=== PATIENT | male | born 1965 | race Caucasian/White ===

== ENCOUNTER → 2020-05-24 11:27 | Outpatient (CLI) | payer OTHER, SELFPAY ==
[2020-05-24 20:43] LABS: SARS-CoV-2 RNA PCR Negative
== END ==
PROVIDERS: PCP Family Medicine; Visit Provider Family Medicine
DX: Z20.822 Contact with and (suspected) exposure to COVID-19 (principal); R06.02 Shortness of breath; R53.83 Other fatigue; R09.81 Nasal congestion
CPT/HCPCS: C9803; U0003; U0005

== ENCOUNTER 2020-07-18 14:30 | Outpatient (CLI) | payer OTHER, SELFPAY | END 2020-07-18 14:31 | disposition home or self-care (01) | LOC: ANHCOVIDVC 14:30 | PROVIDERS: PCP Family Medicine | DX: Z23 Encounter for immunization (principal) | CPT/HCPCS: 0001A; 91300 ==

== ENCOUNTER → 2020-08-10 06:48 | Outpatient (CLI) | payer OTHER, SELFPAY ==
[2020-08-11 19:36] LABS: SARS-CoV-2 RNA PCR Positive
== END ==
PROVIDERS: PCP Family Medicine; Visit Provider Physician Assistant Medical
DX: U07.1 COVID-19 (principal)
CPT/HCPCS: C9803; U0003; U0005